=== PATIENT | female | born 1945 | race Caucasian/White ===

== ENCOUNTER 2020-02-25 03:55 | Inpatient (IN) | payer MEDICARE, SELFPAY ==
[2020-02-25] VITALS (36 sets, daily range): BP systolic 96–157; BP diastolic 53–117; PULSE 54–174; RESP 11–98; TEMP 36.4–36.9; O2SAT 92–100; BMI 28.0; BMI 26.9; BMI 27.0
--- NOTE | 2020-02-25 04:04 | EKG12_ITS ---
Test Reason : CP Blood Pressure : / mmHG Vent. Rate : 175 BPM Atrial Rate : 166 BPM P-R Int : 000 ms QRS Dur : 076 ms QT Int : 268 ms P-R-T Axes : 000 049 -03 degrees QTc Int : 457 ms Atrial fibrillation with rapid ventricular response Nonspecific ST abnormality Abnormal ECG Confirmed by DURGA URBAN ([id number]), supervising film or videotape editor KIRT LLOYD ([id number]) on 03/02/2020 10:00:06 AM Referred By: Pepe Velasco Confirmed By:DURGA URBAN
--- NOTE | 2020-02-25 04:04 | RAD_ITS ---
STUDY: X-RAY CHEST REASON FOR EXAM: Female, 74 years old. c/o heaviness in chest and rapid heart rate TECHNIQUE: Single AP portable view of the chest. COMPARISON: None. FINDINGS: There are superimposed monitor leads. There is hyperinflation of the lungs consistent with chronic obstructive lung disease (COPD). Mild interstitial parenchymal prominence. There is no focal parenchymal abnormality. There is no demonstrated pleural abnormality. Normal size heart. Normal mediastinum and mikey. Normal visualized pulmonary arteries. Normal visualized aortic arch and descending thoracic aorta. There is demineralization of the osseous structures. Degenerative changes, dextroscoliosis. Normal visualized ribs, clavicles, and shoulders. There is no demonstrated abnormality of the visualized soft tissue structures of the upper abdomen. RAD/Chest 1 View (Portable) IMPRESSION: COPD/edema. No pulmonary edema, congestive heart failure or confluent pneumonia. Electronically Signed: Maria Dolores Marie MD at 4:33 EDT , Service support ,
--- NOTE | 2020-02-25 04:04 | ED.VIS.GEN ---
History of Present Illness Chief Complaint: Chest Pain Informant: Patient Narrative: Patient stated 45 minutes ago she woke up from sleep with racing heart rate. She stated this is happened in the past but went away on its own. She is never been formally diagnosed with a tachycardia syndrome. She has some left-sided chest tightness which is mild in nature. Aspirin at home and came in for further evaluation. Current severity is mild. Denies any shortness of breath. Denies any chronic cardiac condition other than having racing heart rate in the past transiently up to 5 different occasions. She is never formally been diagnosed with atrial fibrillation but thinks she has had this in the past. Denies any chronic heart or lung conditions. She does not take any medicines at this time. Non-smoker. No history of hyperthyroidism Past Medical History - Allergies and Home Meds Allergies/Adverse Reactions: Allergies No Known Allergies Allergy (Verified 02/25/20 04:02) Primary Care Physician: Stan Solorio MD [Primary Care Provider] - Prior records reviewed: Yes Past Medical History: None Surgical History: - - Reviewed Lives: With Family Smoking Status: Never smoker Alcohol: None Drugs: None Review of Systems General: Denies: Chills, Fever, Sweats Eyes: Denies: Visual changes - bilaterally, Diplopia ENT: Denies: Rhinorrhea, Sore throat Cardiovascular: Reports: Chest pain, Heart racing. Denies: Palpitations Respiratory: Denies: Dyspnea, Cough, Dyspnea on exertion Gastrointestinal: Denies: Abdominal pain, Nausea, Vomiting, Diarrhea, Melena, Hematochezia Genitourinary: Denies: Dysuria, Hematuria, Frequency Musculoskeletal: Denies: Back pain, Extremity Pain Skin: Denies: Rash, Wounds Neurological: Denies: Headache, Weakness, Numbness Physical Exam Vital Signs/Narrative: Vital Signs Temp Pulse Resp BP Pulse Ox 02/25/20 03:59 140/89 H 02/25/20 03:56 97.6 F L 153 H 18 157/117 H 100 General: Well nourished, Well developed, No Acute Distress Head: Normocephalic, Atraumatic Eyes: Perrl, EOMI ENT: Moist mucous membranes, No rhinorrhea Neck: Supple, Nontender Cardiovascular: Regular rate, No murmurs, Irregular, Tachycardia Respiratory: No distress, CTA bilaterally, Chest nontender Abdomen: Soft, Nontender, Nondistended, Normal bowel sounds Back: Nontender, Normal Inspection Extremities: Nontender, No edema Skin: Normal color, No rash Neurological: Alert, Oriented x3, Cranial nerves II-XII grossly intact, Normal Strength, Normal Sensation Psychological: Normal affect, Normal Mood Diagnostic/Tx/Re-eval - Medical Decision Making EKG shows atrial fibrillation with rapid ventricular response at a rate of 175. Nonspecific ST abnormality. Patient given a dose of Cardizem IV. Lab work and chest x-ray obtained. Took aspirin at home. Patient given 3 doses of Cardizem to bring her heart rate down in the 110. Chest x-ray negative. Lab work shows nothing acute except for potassium of 3.4. Troponin negative. At this time the patient remains in A. fib with RVR but better rate control. Will be admitted for further evaluation and treatment - Critical Care Time Critical care time (excluding procedures): 30-74 minutes ED Disposition - Plan for ED Patient: Disposition: Acute Care Hospital [facility] Diagnosis: Atrial fibrillation with rapid ventricular response
[2020-02-25] MEDS: dilTIAZem 25 MG/5 ML Vial 10 MG IV BOLUS ×2 (04:10→04:32)
[2020-02-25 04:18] LABS: Absolute Lymphocyte Count 4.28 X10^3/uL (0.83-4.51); Absolute Neutrophil Count 1.5 X10^3/uL (2.0-7.7); Basophil# 0.06 X10^3/uL; Basophil% 0.9 % (0-1); Eosinophils% 1.6 % (0-5); Hematocrit 42.7 % (37-47); Lymphocyte # 4.28 X10^3/ul (4.0); Lymphocyte % 67.6 % (19-41); Mean Corp Hgb Conc 32.8 g/dL (32-36); Mean Corpuscular Hgb 30.1 pg (27.0-32.0); Mean Corpuscular Volume 91.8 fL (81-99); Mean Platelet Vol. 11.1 fl (6.2-12.0); Monocyte# 0.43 X10^3/uL; Monocyte% 6.8 % (0-10); NRBC Flagged by Analyzer 0 % (0-5); Neutrophil # 1.45 X10^3/uL (2.7-7.7); Neutrophil % 22.9 % (47-70); Platelet Count 191 K/mm3 (150-450); RBC Distribution Width SD 43.2 fl (35.1-43.9); Red Blood Count 4.65 M/mm3 (4.2-5.4); White Blood Count 6.3 K/mm3 (4.4-11.0)
[2020-02-25 04:40] LABS: Anion Gap 6 (5-15); BUN 16 mg/dL (7-18); BUN/Creat Ratio 19.9 RATIO (10-20); Chloride 104 mmol/L (98-107); EST Glomerular Filtration Rate 74 mL/min (>60); Est Glom Filt Rate - Afr Amer 90 mL/min (>60); Estimated Creatinine Clearance 54.89 ml/min; Glucose 102 mg/dL (74-106); Potassium 3.4 mmol/L (3.5-5.1); Sodium Level 140 mmol/L (136-145); Thyroid Stim Hormone (TSH) 3.71 uIU/mL (0.358-3.74)
[2020-02-25] MEDS: dilTIAZem 25 MG/5 ML Vial 20 MG IV BOLUS (05:02)
--- NOTE | 2020-02-25 05:22 | PCM.HP.STD ---
Problem List (1) Atrial fibrillation with rapid ventricular response Status: Acute (2) Denies previous medical history Status: Chronic History of Present Illness Date of Admission: 02/25/20 Chief Complaint: Palpitations The patient is a 74 year old F previously healthy who presents to the emergency department with palpitations that was present when she woke up from her sleep. On the day of presentation patient woke up around 3:30 AM and presented to emergency department around 4 AM. Associated with her symptoms is left sided chest tightness. She denies any nausea; vomiting, shortness of breath or diaphoresis. The patient took 2 tablets of aspirin before coming to the emergency department. Patient reports about 5 times episodes of previous palpitations. She thinks that her previous palpitations was due to atrial fibrillation as her mother and son both had same symptoms were diagnosed with atrial fibrillation. Further she reports a daughter with tachycardia. Past Medical History Past Medical History (Chronic Problems): Chronic Problems (Last Updated 02/25/20 @ 06:[address] Pepe Velasco MD) Denies previous medical history (Chronic) Medical History: Medical History (Last Updated 02/25/20 @ 06:[address] Pepe Velasco MD) Denies previous medical history (Acute) Allergies No Known Allergies Allergy (Verified 02/25/20 04:02) Home Medications: Ambulatory Orders Medication Instructions Recorded NK 02/25/20 Surgical History: appendectomy, - - Reviewed Lives: With Family Smoking Status: Never smoker Alcohol: None Drugs: None - *Family History Maternal History Items: - - Report that her mother and son had atrial fibrillation Paternal History Items: Heart Disease Review of Systems Constitutional: Denies: Chills, Fever, Weight Change HEENT: Denies: Head Aches, Sinus Congestion, Sinus Drainage Cardiovascular: Reports: Chest Tightness, Palpitations. Denies: Chest Pain Respiratory: Denies: Cough, Shortness of breath at rest, Sputum production Gastrointestinal: Denies: Abdominal Pain, Nausea, Vomiting Genitourinary: Denies: Dysuria Musculoskeletal: Denies: Joint Pain, Joint Tenderness Skin: Denies: Rash, Wounds Neurological: Denies: Numbness, Tingling, Focal weakness Psychiatric: Denies: Anxiety, Depression, Homicidal Ideations, Suicidal Ideations Hematologic/ Lymphatic: Denies: Easy Bruising, Easy Bleeding VTE Information - Inpt Only VTE Present on Admission: No VTE Mechan Device Prophylaxis: None VTE Pharm Prophylaxis ordered?: No Reason prophylaxis not ordered:: Treatment Not Indicated - Patient was given therapeutic dose of Lovenox for atrial fibrillation. Patient Problems: Active and Suspected Problems (Last Updated 02/25/20 @ 06:[address] Pepe Velasco MD) Atrial fibrillation with rapid ventricular response (Acute) - Physical Exam Vitals/I&O's: Vital Signs Temp Pulse Resp BP Pulse Ox 97.6 F L 174 H 18 142/95 H 95 02/25/20 03:56 02/25/20 05:02 02/25/20 05:02 02/25/20 05:02 02/25/20 05:02 Oxygen Delivery Method Room Air Weight: 74 kg Body Mass Index (BMI) 28.0 General: Alert, Oriented x3, Cooperative HEENT: Atraumatic, PERRLA, EOMI, Normocephalic Neck: Supple, No JVD, Negative Carotid Bruits Lungs: Clear to auscultation, Normal air movement Cardiovascular: No murmurs, Irregular Rate, Tachycardic Abdomen: Bowel Sounds Present, Soft, Non Tender Extremities: No edema, Capillary Refill Less than 3 Seconds Skin: No rashes, No breakdown Musculoskeletal: No Tenderness to Palpation of Joints or Extremities Neurological: Cranial nerves II-XII grossly intact Psych/Mental Status: Normal Affect, Appropriate Laboratory Results 02/25/20 04:10: WBC 6.3, RBC 4.65, Hgb 14.0, Hct 42.7, MCV 91.8, MCH 30.1, MCHC 32.8, RDW Std Deviation 43.2, RDW Coeff of Vargas 13.0, Plt Count 191, MPV 11.1, Immature Gran % (Auto) 0.200, Neut % (Auto) 22.9 L, Lymph % (Auto) 67.6 H, [place] % (Auto) 6.8, Eos % (Auto) 1.6, Baso % (Auto) 0.9, Absolute Neuts (auto) 1.5 L, Absolute Lymphs (auto) 4.28, Nucleated RBC % 0 02/25/20 04:10: Sodium 140, Potassium 3.4 L, Chloride 104, Carbon Dioxide 30.0, Anion Gap 6, BUN 16, Creatinine 0.80, Estim Creat Clear Calc 54.89, Est GFR (MDRD) Af Amer 90, Est GFR (MDRD) Non-Af 74, BUN/Creatinine Ratio 19.9, Glucose 102, Calcium 9.0, Troponin I < 0.015, TSH 3.71 Assessment/Plan All Active Problems (Last Updated 02/25/20 @ 06:[address] Pepe Velasco MD) Atrial fibrillation with rapid ventricular response (Acute) The patient is a 74 year old F previously healthy who presents emergency department with palpitations and chest tightness that was present when she woke up from his sleep; and with EKG and telemetry findings of A. fib with RVR A. fib with RVR Place on PCU on telemetry Received Cardizem bolus at emergency department. Cardizem drip ordered. Obtain echo Lovenox 1 mg per kilogram subcutaneous x1. Consider putting patient on oral anticoagulation since patient has high Charles vas 2 score. Potassium level was 3.4; 60 mEq of K-Dur ordered. Check magnesium level. Check TSH. Consult cardiology. Trend BMP. DVT prophylaxis Not indicated since patient has been given therapeutic dose of Lovenox. Inpatient E&M: 64066 Init Hosp L3
--- NOTE | 2020-02-25 06:07 | ECHOD_ITS ---
Reason For Study: AFIB Procedure This was a 2D Doppler, Color Flow transthoracic echocardiogram. Exam performed portable in patient room. Left Ventricle Normal LV size. Left ventricular systolic function is normal. The estimated ejection fraction is 60 %. Unable to assess diastolic dysfunction due to arrhythmia. No regional wall motion abnormalities noted. Right Ventricle Normal RV size. Normal systolic function. Atria Normal left atrium. Normal right atrium. Mitral Valve Normal mitral valve. Tricuspid Valve Normal tricuspid valve. Mild (1+) tricuspid valve insufficiency. Pulmonary artery systolic pressure is 42 mmHg. Aortic Valve Trisinus/trileaflet aortic valve. Mild diffuse aortic valve thickening. Pulmonic Valve Normal pulmonic valve. Great Vessels Normal aortic root. The pulmonary artery is normal size. Normal inferior vena cava. Pericardium/Pleural No pericardial effusion. MMode/2D Measurements & Calculations LVIDd: 3.3 cm IVSd: 0.98 cm Ao root diam: 3.2 cm LVIDs: 1.7 cm LVPWd: 0.90 cm RVDd: 3.2 cm FS: 48.9 % LAV(MOD-bp): 68.6 ml LA A4 area: 17.8 cm2 LA dimension(2D): 4.6 cm LAV(MOD-bp) Indexed: 38.3 ml/m2 LAV(MOD-sp2): 88.2 ml LAV(MOD-sp4): 49.3 ml RA A4 area: 12.9 cm2 Time Measurements MV dec time: 0.12 sec Doppler Measurements & Calculations MV E max nabor: 163.5 cm/sec Ao V2 max: 158.3 cm/sec LV V1 max: 137.1 cm/sec Ao max P.1 mmHg LV V1 max P.7 mmHg TR max nabor: 304.1 cm/sec TR max P.0 mmHg Interpretation Summary Normal LV size. Left ventricular systolic function is normal. The estimated ejection fraction is 60 %. Unable to assess diastolic dysfunction due to arrhythmia. Mild (1+) tricuspid valve insufficiency. Ordering Physician: Pepe Velasco Referring Physician: JAVON PERDOMO Performed By: Cynthia Pike, LIA, RVT
[2020-02-25] MEDS: Enoxaparin 80 MG/0.8 ML Syringe 75 MG SC (06:41)
--- NOTE | 2020-02-25 11:08 | CASEMGMT ---
CRISTOBAL PABLO assessment: Face to Face with patient for initial transition planning/care coordination assessment. CRISTOBAL PABLO introduced self and role at [facility], pt voices understanding and consents to assessment at this time. Pt is sitting up in bed in no distress at this time. Pt is A/Ox4 at this time and answers all questions appropriately at this time. Care providers, pharmacy, and demographics verified. Presentation: Chest tightness that woke pt from sleep 1 hr prior Admitting dx: Afib RVR PCP: Pt used to see Dr. Solorio but states has not seen 'in awhile' and would like a list of in-network PCPs at this time. List provided. Specialists: Pt states no current specialists. [facility] Prescription Benefit: [employer] Living Will/HPOA: Pt states has LW/HPOA and states that her is bringing them in with him today to be placed on chart. Pt states , [facility], is HPOA. LNOK: [facility], Living Arrangements: Pt states lives with in 1 story home and states no concerns at home at this time. Pt states is independent with ADL's. Transportation: Pt states drives self and states no transportation concerns at this time. DME/HHC: Pt has the following DME but does not use: cane, walker, w/c, and grab bars. Pt states no need for any further DME. Pt states no hx of HHC or SNF in the past. Pt states no concerns with going home at time of discharge. Pt states is retired. Pt states does not smoke cigarettes or drink ETOH. Pt states no further concerns/needs at this time. CM to follow for any further discharge planning/needs. Advised pt to ask for CM if any further questions/concerns/needs arise, voices understanding. Pt Goal: Home Plan[place] CRISTOBAL PABLO
[2020-02-25] MEDS: Acetaminophen 325 MG Tablet 650 MG PO (11:43)
--- NOTE | 2020-02-25 14:35 | EKG12_ITS ---
Test Reason : ARRYTHMIA Blood Pressure : / mmHG Vent. Rate : 060 BPM Atrial Rate : 060 BPM P-R Int : 176 ms QRS Dur : 084 ms QT Int : 404 ms P-R-T Axes : 009 033 031 degrees QTc Int : 404 ms Normal sinus rhythm Normal ECG When compared with ECG of 25-FEB-2020 03:58, MANUAL COMPARISON REQUIRED, DATA IS UNCONFIRMED Confirmed by DURGA URBAN ([id number]), editorial specialist KIRT LLOYD ([id number]) on 03/02/2020 10:05:44 AM Referred By: Pepe Velasco Confirmed By:DURGA URBAN
[2020-02-25] MEDS: Pantoprazole Sodium 40 MG Tablet PO (20:37)
[2020-02-25] MEDS: APIXABAN 5 MG TABLET PO (20:43)
[2020-02-25] MEDS: dilTIAZem 60 MG CAP.SR.12H PO (20:43)
[2020-02-26 02:40] VITALS: BP 124/77; PULSE 69; RESP 16; TEMP 36.9; O2SAT 96
[2020-02-26 03:00] VITALS: PULSE 62
[2020-02-26 06:03] VITALS: BP 118/66; PULSE 67; RESP 16; TEMP 36.7; O2SAT 97
[2020-02-26 06:55] VITALS: PULSE 59
[2020-02-26 07:02] LABS: Anion Gap 3 (5-15); BUN 12 mg/dL (7-18); BUN/Creat Ratio 18.1 RATIO (10-20); Calcium,Total 8.9 mg/dL (8.5-10.1); Chloride 106 mmol/L (98-107); Creatinine, Serum 0.66 mg/dL (0.55-1.02); EST Glomerular Filtration Rate 93 mL/min (>60); Est Glom Filt Rate - Afr Amer 113 mL/min (>60); Estimated Creatinine Clearance 43.91 ml/min; Glucose 105 mg/dL (74-106); Magnesium 1.9 mg/dL (1.6-2.6); Potassium 3.8 mmol/L (3.5-5.1); Sodium Level 138 mmol/L (136-145); Thyroid Stim Hormone (TSH) 1.74 uIU/mL (0.358-3.74)
[2020-02-26] MEDS: Acetaminophen 325 MG Tablet 650 MG PO (07:55)
[2020-02-26] MEDS: Pantoprazole Sodium 40 MG Tablet PO (07:55)
[2020-02-26] MEDS: dilTIAZem 60 MG CAP.SR.12H PO (07:55)
[2020-02-26] MEDS: APIXABAN 5 MG TABLET PO (07:55)
--- NOTE | 2020-02-26 09:17 | DCINST_ITS ---
- Discharge Diagnoses Current Active Problems: Current Active and Chronic Problems (Last Updated 02/25/20 @ 06:[address] Pepe Velasco MD) Atrial fibrillation with rapid ventricular response (Acute) Denies previous medical history (Chronic) You will use the following diet at home:: Regular Your food should be the consistency of: Regular Your liquids should be the consistency of: Regular/Thin Discharge Activity: Return to Normal Activity Call your doctor if you observe: Fever of 101 or Higher, Shortness of breath, Dizziness, Fainting spells, Swelling in the ankles, Chest pain, Increased palpitations (irregular heartbeat) Allergies/Adverse Reactions: Allergies acetaminophen [From Vicodin] Adverse Reaction (Verified 02/25/20 06:17) Vomiting hydrocodone [From Vicodin] Adverse Reaction (Verified 02/25/20 06:17) Vomiting Medications to take at Discharge Apixaban [Eliquis] 5 mg PO BID #60 tab 02/26/20 Diltiazem SR [Cardizem Sr] 60 mg PO Q12 #60 cap.sr.12h 02/26/20 The following prescriptions were given: Diltiazem SR [Cardizem Sr] 60 mg PO Q12 #60 cap.sr.12h Transmission Status: Pending to [facility] Apixaban [Eliquis] 5 mg PO BID #60 tab Transmission Status: Pending to [facility] Primary Care Physician: Stan Solorio MD [Primary Care Provider] - Please follow up with your Primary Care Physician in: 3-5 days Test Results: Test results from this visit will be discussed in further detail at your follow- up appointment, if applicable. Please Follow Up With: Cardiology When: 2-4 weeks
--- NOTE | 2020-02-26 09:18 | DS.PCM_ITS ---
Discharge Date and Diagnosis - Problem List Patient Problems: Active and Suspected Problems (Last Updated 02/25/20 @ 06:[address] Pepe Velasco MD) Atrial fibrillation with rapid ventricular response (Acute) Date of Admission: 02/25/20 Date of Discharge: 02/26/20 - Primary Discharge Diagnosis Acute Problems: Active Problems (Last Updated 02/25/20 @ 06:[address] Pepe Velasco MD) Atrial fibrillation with rapid ventricular response (Acute) - Secondary Discharge Diagnosis Chronic Problems: Chronic Problems (Last Updated 02/25/20 @ 06:[address] Pepe Velasco MD) Denies previous medical history (Chronic) Hospital Course and Treatment Imaging Results: Clinical Impression(s) from Imaging Studies Chest X-Ray 02/25/20 04:04 IMPRESSION: COPD/edema. No pulmonary edema, congestive heart failure or confluent pneumonia. Electronically Signed: Maria Dolores Marie MD at 4:33 EDT , Service support , Echo: Interpretation Summary Normal LV size. Left ventricular systolic function is normal. The estimated ejection fraction is 60 %. Unable to assess diastolic dysfunction due to arrhythmia. Mild (1+) tricuspid valve insufficiency. Consults: None Operations: None Procedures: 2-D Echocardiogram Summary of Care Provided: Per HPI: The patient is a 74 year old F previously healthy who presents to the emergency department with palpitations that was present when she woke up from her sleep. On the day of presentation patient woke up around 3:30 AM and presented to emergency department around 4 AM. Associated with her symptoms is left sided chest tightness. She denies any nausea; vomiting, shortness of breath or diaphoresis. The patient took 2 tablets of aspirin before coming to the emergency department. Patient reports about 5 times episodes of previous palpitations. She thinks that her previous palpitations was due to atrial fibrillation as her mother and son both had same symptoms were diagnosed with atrial fibrillation. Further she reports a daughter with tachycardia. Hospital Course: 1. A. fib with [id number]-ojpo-old female with no previous past medical history p resented with sensations of palpitations. She had some left-sided chest tightness with a normal troponin. She was found to be in A. fib with RVR when she presented to the hospital started on a Cardizem drip she has also received multiple boluses throughout the day. She did transition to normal sinus rhythm and was stable from that standpoint. She did have a normal TSH as well as a normal echocardiogram. However based on her age and her gender she does qualify for anticoagulation in setting of A. fib therefore she was started on Eliquis 5 mg p.o. twice daily. She was transitioned to oral Cardizem at 60 mg p.o. twice daily because she felt that it would be easier to remember to take 2 pills twice a day then 2 pills in the morning and 1 pill at night. I discussed the plan for discharge and she expressed understanding of the risks and benefits of going home today. She will need to follow-up with her PCP in 3 to 5 days as well as cardiology as an outpatient. Patient Problems: Active and Suspected Problems (Last Updated 02/25/20 @ 06:[address] Pepe Velasco MD) Atrial fibrillation with rapid ventricular response (Acute) - Physical Exam Vitals/I&O's: Vital Signs Temp Pulse Resp BP Pulse Ox 98.0 F 59 L 16 118/66 97 02/26/20 06:03 02/26/20 06:55 02/26/20 06:03 02/26/20 06:03 02/26/20 06:03 Oxygen Delivery Method Room Air Weight: 157 lb 3.033 oz Body Mass Index (BMI) 26.9 Intake and Output for Last 24 Hours 02/24/20 02/25/20 02/26/20 23:59 23:59 23:59 Intake Total 1187.99 / 1187.99 120 / 120 Output Total 2 / 2 Balance 1185.99 / 1185.99 120 / 120 General: Alert, Oriented x3, Cooperative, No apparent distress HEENT: Atraumatic, PERRLA, EOMI, Normocephalic Oral: Moist Mucosa Neck: Supple, No JVD Lungs: Clear to auscultation, Normal air movement, No rhonchi, No wheeze, No rales, Diminished Cardiovascular: Regular rate, Regular Rhythm, Normal S1, Normal S2, No murmurs Abdomen: Soft, Non Tender, Non-Distended, No Hepato-splenomegaly Extremities: No edema, Capillary Refill Less than 3 Seconds Skin: No rashes, No breakdown Neurological: Neuro grossly intact, Sensory exam intact to light touch and pain Psych/Mental Status: Normal Affect, Appropriate Laboratory Results 02/26/20 06:00: Sodium 138, Potassium 3.8, Chloride 106, Carbon Dioxide 29.0, Anion Gap 3 L, BUN 12, Creatinine 0.66, Estim Creat Clear Calc 43.91, Est GFR (MDRD) Af Amer 113, Est GFR (MDRD) Non-Af 93, BUN/Creatinine Ratio 18.1, Glucose 105, Calcium 8.9, Magnesium 1.9, TSH 1.74 Current Medications Acetaminophen (Tylenol) 650 mg PO Q6H PRN PRN PRN Reason: Pain Score 1-10/Temp > 100.7 F Last Admin: 02/26/20 07:55 Dose: 650 mg Documented by: Apixaban (Eliquis) 5 mg PO BID [facility] Last Admin: 02/26/20 07:55 Dose: 5 mg Documented by: Calcium Carbonate (Tums) 500 mg PO Q4H PRN PRN PRN Reason: HEARTBURN Diltiazem HCl (Cardizem Sr) 60 mg PO Q12 [facility] Last Admin: 02/26/20 07:55 Dose: 60 mg Documented by: Melatonin (Melatonin) 3 mg PO QHS PRN PRN PRN Reason: INSOMNIA Ondansetron HCl (Zofran) 4 mg IV Q8H PRN PRN PRN Reason: NAUSEA/VOMITING Pantoprazole Sodium (Protonix) 40 mg PO DAILY [facility] Last Admin: 02/26/20 07:55 Dose: 40 mg Documented by: Sodium Chloride () 10 - 40 ml IV UD PRN PRN Reason: SALINE FLUSH Discharge Activity: Return to Normal Activity Call your doctor if you observe: Fever of 101 or Higher, Shortness of breath, Dizziness, Fainting spells, Swelling in the ankles, Chest pain, Increased palpitations (irregular heartbeat) Home Medications: Medications to take at Discharge Apixaban [Eliquis] 5 mg PO BID #60 tab 02/26/20 Diltiazem SR [Cardizem Sr] 60 mg PO Q12 #60 cap.sr.12h 02/26/20 Following Prescriptions Were Given to Patient: Diltiazem SR [Cardizem Sr] 60 mg PO Q12 #60 cap.sr.12h Transmission Status: Received by [facility] Apixaban [Eliquis] 5 mg PO BID #60 tab Transmission Status: Received by [facility] Primary Care Physician: Stan Solorio MD [Primary Care Provider] - Please follow up with your Primary Care Physician in: 3-5 days Please Follow Up With: Cardiology When: 2-4 weeks Disposition: Home Minutes spent on discharge:: 35 Patient Condition:: Stable Medical Necessity - Tobacco Use Smoking Status: Never smoker Meaningful Use Info Meaningful Use Diagnoses (Choose all that apply): None applicable Inpatient E&M: 64160 Disch Hosp
[2020-02-26 09:32] VITALS: BP 123/72; PULSE 68; RESP 16; TEMP 36.8; O2SAT 98
--- NOTE | 2020-02-26 10:10 | CASEMGMT ---
Pt to be sent home on Eliquis at discharge and med e-scribed to [facility] retail pharmacy. Call to Gurdeep in [facility] pharmacy and she states pt's Eliquis co-pay is $47 at this time. 30 day free trial card tubed to [facility] retail pharmacy at this time. Per Gurdeep, pt's co-pay for Cardizem is also $47 at this time. Dominique JAIN aware of all, voices understanding. Uriah JAIN CM
== END 2020-02-26 10:28 | disposition home or self-care (01) | DRG 310 ==
LOC: ED 05:24 → PCU 06:04
PROVIDERS: Admitting Provider Hospitalist; Emergency Provider Emergency Medicine; PCP Family Medicine; Referring Provider Hospitalist; Visit Provider Family Medicine
DX: I48.91 Unspecified atrial fibrillation (principal)
CPT/HCPCS: 36415; 71045; 80048; 83735; 84443; 84484; 85025; 93005; 93306; 99285; A4216